=== PATIENT | female | born 1950 | race Caucasian/White ===

== ENCOUNTER 2016-07-14 20:13 | Emergency (ER) | payer OTHER ==
--- NOTE | 2016-07-14 20:52 | ED GENERAL ADULT ---
History of Present Illness General Chief Complaint: Cardiopulmonary Resuscitation Stated Complaint: BIBA CPR Source: family, EMS Exam Limitations: not alert/orientated Vital Signs & Intake/Output Vital Signs & Intake/Output Vital Signs Date Time Temp Pulse Resp B/P Pulse O2 O2 Flow FiO2 Ox Delivery Rate 07/14 2106 100 07/14 2100 110 16 82/0 07/14 2027 96.6 110 16 108/66 ED Intake and Output 07/15 0000 07/14 1200 Intake Total 3000 Output Total Balance 3000 Intake, IV 3000 Allergies Coded Allergies: UNOBTAINABLE (07/14/16) Triage Nurses Notes Reviewed? yes HPI: Patient is a 66 year old lady who is BIBA after she was found unconscious at home at 6 pm, family started resuscitation and called EMS, was found in asystole , started CPR on the way, received two doses of EPinephrine on the way at 19:46 and 20:06 pm. [id number] When she arrived in the ED had no pulses, was already intubated, we continued CPR, she received 3rd dose of epinephrine at 20:16 pm, still remained in PEA and compressions and ventilation with bag valve mask was continued. Ca-gluconate and Atropine were given. At 20:40 she went into afib and subsequently to vfib, she received amiodarone and was shocked, compressions were resumed, an IO line was established, at 20:44 received ROSC, pulses became palpable again and patient was started on levophed and amiodarone drip. Patient was given NS bolus through right tibia IO and second IO (humerous) was established and received another NS bolus through that. BP:94/66. Patient was transferred to [facility] [place] for cardiac cath. She received aspirin suppository and Brilinta through NG tube. Patient was transferred to [facility] for cardiac cath. PMH: Per family person has been having SOB and has a hx of COPD. also has a hx of HTN. (SHANNAN BALTAZAR MD) Past History Travel History Traveled to [place] past 21 day No Medical History Any Pertinent Medical History? see below for history Cardiovascular: hypertension Respiratory: COPD Surgical History Surgical History: unobtainable Family History Hx Contributory? Yes (SHANNAN BALTAZAR MD) Review of Systems Review of Systems Constitutional: Reports: see HPI. (SHANNAN BALTAZAR MD) Review of Systems Constitutional: Reports: see HPI, weakness. Comments Unable to obtain from patient. (RAMIREZ OROPEZA MD) Physical Exam Physical Exam General Appearance: intubated Head: atraumatic Eyes: Bilateral: normal appearance. Respiratory: decreased breath sounds, no spontaneous respirations present, intubated Cardiovascular: irregular, distant heart sounds Peripheral Pulses: 0 carotid (R), 0 carotid (L), 0 femoral (R), 0 femoral (L) Extremities: pale, cold, pulses not palpable Neurologic/Psych: cardiac arrest, unconscious, intubated Skin: pallor Core Measures ACS in differential dx? Yes CVA/TIA Diagnosis: No Severe Sepsis Present: No Septic Shock Present: No (SHANNAN BALTAZAR MD) Physical Exam Ears, Nose, Throat: normal ENT inspection Neck: normal inspection Gastrointestinal: soft, non-tender Back: normal inspection Lymphatic: no anterior cervical bea (RAMIREZ OROPEZA MD) Progress Differential Diagnoses I considered the following diagnoses in my evaluation of the patient: [ cardiopulmonary arrest, myocardial infarction, ventricular fibrilation] Plan of Care: Orders Procedure Date/time Status VENTILATOR PARAMETERS 07/14 2099 Complete EKG 07/14 2027 Active Initial ED EKG: ST elevation (SHANNAN BALTAZAR MD) Differential Diagnoses I considered the following diagnoses in my evaluation of the patient: (RAMIREZ OROPEZA MD) Departure Departure Time of Disposition: 2099 Disposition: OTHER [facility] (ACUTE) Condition: Critical Departure Forms: General Discharge Information (SHANNAN BALTAZAR MD) Departure Clinical Impression Primary Impression: Myocardial infarction (lateral wall) Secondary Impressions: PEA (Pulseless electrical activity), Signs of return of spontaneous circulation Resident Co-Sign Statement Statement: ED Attending supervision documentation- x I saw and evaluated the patient. I have also reviewed all the pertinent lab results and diagnostic results. I agree with the findings and the plan of care as documented in the Resident's documentation. [] I have reviewed the ED Record and agree with the Resident's documentation. [] Additions or exceptions (if any) to the Resident's note and plan are summarized below: [] (RAMIREZ OROPEZA MD) Critical Care Note Critical Care Note Critical Care Time: 30-74 min (SHANNAN BALTAZAR MD) Critical Care Note Critical Care Time: 30-74 min (40) Total CPR Time (mins): 10 (RAMIREZ OROPEZA MD)
[2016-07-14 21:00] VITALS: BP 82/0
== END 2016-07-14 21:10 | disposition short-term general hospital (02) ==
LOC: ERH 20:13
DX: I21.3 ST elevation (STEMI) myocardial infarction of unspecified site (principal); I10 Essential (primary) hypertension; J44.9 Chronic obstructive pulmonary disease, unspecified
CPT/HCPCS: 1344; 1387; 93005; 93010; 94799; 96374; 96375; 96376; 99291